=== PATIENT | female | born 1950 | race Caucasian/White ===

== ENCOUNTER 2018-03-29 07:52 | Day surgery (SDC) | payer MEDICARE, OTHER, SELFPAY ==
[2018-03-02 08:46] VITALS: BMI 29.2
[2018-03-29] VITALS (8 sets, daily range): BP systolic 99–162; BP diastolic 46–74; PULSE 51–68; RESP 14–16; TEMP 36.2–36.6; O2SAT 91–95; BMI 28.0
--- NOTE | 2018-03-29 09:30 | LES_PTH ---
PATIENT: ARLEN RAMIREZ LOC: [facility] – [place] U#:[id number] AGE/SX: 67/F ROOM: RE03/29/[address]: Dr. Ian Artis MD : 1950 BED: DIS: 03/29/2018 SPEC #: [id number] RECD: 03/29/18 13:11 STATUS: [facility] #: [id number] JULIET: 03/29/18 09:[address]: Ian Artis DEPT: SURGICAL PATHOLOGY RECD BY: Talha Tellez ENTERED: 03/29/18 13:23 SP TYPE: Lesion OTHR DR: Dr. Home Bonilla MD Tissues: Skin of scalp, NOS Procedures: Surgery Specimen Level IV HEADER OPERATION: Excision basal cell carcinoma, left frontal scalp PRE-OP DIAGNOSIS: 1 cm basal cell carcinoma, nodular and pigmented type, left frontal scalp TISSUE SUBMITTED: Left frontal scalp basal cell carcinoma, suture at 12 o'clock MICROSCOPIC DIAGNOSIS Left frontal scalp basal cell carcinoma, excisional biopsy: Negative for carcinoma. Dermal fibrosis consistent with scar. SJ:[email or web address] 03/30/18 MICROSCOPIC DESCRIPTION Slides are reviewed. GROSS DESCRIPTION Received in fixative is one container labeled with the patient's name and designated left frontal scalp. The specimen consists of a discoid fragment of light dumont excised skin measuring 1.6 x 1.2 cm and a depth of excision measuring 0.5 cm. A suture is present at one edge. This edge and corresponding half is inked in yellow ink. The opposite half is inked in black ink. The specimen is serially sectioned and totally submitted in one cassette. / AM:anushka 03/29/18 TC:5 CPT: 35980
[2018-03-29] MEDS: Mupirocin Ointment 22gm Tube 1 APPLIC (11:43)
--- NOTE | 2018-03-29 11:57 | PCM.IMDPSTOP ---
Immediate Post-Op Note Date of Procedure: 03/29/18 Primary Surgeon/Physician: Ian Artis MD veneer glue spreader: Kamini Molina. Pre-Operative Diagnosis: 1. 1 cm basal cell carcinoma, nodular and pigmented type, left frontal scalp. 2. Family history of skin cancer. 3. Smoker. Post-Operative Diagnosis: Same. Surgery/Procedure Performed:: Excision 1 cm basal cell carcinoma, nodular and pigmented type, left frontal scalp with FTSG reconstruction from left neck (3.24 cm2). Description of Surgical Findings:: 67 year old woman presents with a lesion on her left frontal scalp that had increased in size over the last several months. It had become more raised in configuration and had developed irregular borders. It was recently biopsied on 02/02/18 and it showed a basal cell carcinoma, nodular and pigmented type. She denies any localized alopecia. Today the patient underwent excision 1 cm basal cell carcinoma, nodular and pigmented type, left frontal scalp with FTSG reconstruction from left neck (3.24 cm2). Size of skin graft left frontal scalp - 1.8 x 1.8 cm. Estimated Blood Loss: 5 ml. Specimen's removed: Basal cell carcinoma left frontal scalp to Pathology. Drains: None. Type of Anesthesia:: Local MAC - xylocaine with epinephrine. - Admit VTE Documentation VTE Present on Admission: No VTE Mechan Device Prophylaxis: SCD's VTE Pharm Prophylaxis ordered?: No
--- NOTE | 2018-03-29 12:00 | OP.PN_ITS ---
Immediate Post-Op Note Date of Procedure: 03/29/18 Primary Surgeon/Physician: Ian Artis MD therapist rrt: Kamini Molina. Pre-Operative Diagnosis: 1. 1 cm basal cell carcinoma, nodular and pigmented type, left frontal scalp. 2. Family history of skin cancer. 3. Smoker. Post-Operative Diagnosis: Same. Surgery/Procedure Performed:: Excision 1 cm basal cell carcinoma, nodular and pigmented type, left frontal scalp with FTSG reconstruction from left neck (3.24 cm2). Description of Surgical Findings:: 67 year old woman presents with a lesion on her left frontal scalp that had increased in size over the last several months. It had become more raised in configuration and had developed irregular borders. It was recently biopsied on 02/02/18 and it showed a basal cell carcinoma, nodular and pigmented type. She denies any localized alopecia. Today the patient underwent excision 1 cm basal cell carcinoma, nodular and pigmented type, left frontal scalp with FTSG reconstruction from left neck (3.24 cm2). Size of skin graft left frontal scalp - 1.8 x 1.8 cm. Estimated Blood Loss: 5 ml. Specimen's removed: Basal cell carcinoma left frontal scalp to Pathology. Drains: None. Type of Anesthesia:: Local MAC - xylocaine with epinephrine. - Admit VTE Documentation VTE Present on Admission: No VTE Mechan Device Prophylaxis: SCD's VTE Pharm Prophylaxis ordered?: No
--- NOTE | 2018-03-29 12:08 | DCINST_ITS ---
You will use the following diet at home:: No restrictions Discharge Activity: May not drive while taking narcotic pain medications., May Shower - from the neck down in two days. do not get hair wet until the scalp dressing is removed in the office., - - keep head elevated. no heavy lifting. May shower in (days): 2 - from the neck down. May resume sexual activity in: No Restrictions Weight Bearing Status: Weight bearing as tolerated Lifting Restrictions: 20 lbs. Keep extremity elevated above heart level: - - elevate h ead. Call your doctor if your incision/area has: Continuous Slow Oozing, Sudden Increased Bleeding, Increased Pain/ Swelling, Increased Redness, Foul Smelling Discharge, Swelling at the incision site Call your doctor if you observe: Fever of 101 or Higher, Coldness, Increased Pain, Shortness of breath, Chest pain, Calf discomfort, Uncontrolled pain Suture Line Care: - - after neck dressing is removed in two days, apply antibiotic ointment to suture line daily. Change Dressing in (Days):: 2 - neck dressing only. Remove Dressing in (days):: 6 - will remove scalp dressing in office. Cleanse incision/area with: - - may get scalp graft wet in the shower after the scalp dressing is removed in the office. may get neck incision wet in the shower in two days. in two days, shower from the neck down only. do not get hair wet in the shower. Allergies/Adverse Reactions: Allergies TAPE ADHESIVE Adverse Reaction (Intermediate, Uncoded 03/23/18 13:40) SKIN BREAKDOWN Medications to take at Discharge atenolol 100 mg tablet 100 mg PO DAILY 03/02/18 hydrochlorothiazide 25 mg tablet 25 mg PO DAILY 03/02/18 lisinopril 20 mg tablet 20 mg PO DAILY 03/02/18 lovastatin 20 mg tablet 20 mg PO QHS 03/02/18 Clindamycin HCl [Cleocin HCl] 300 mg PO TID #21 cap 03/29/18 Lactobacillus Acidophilus/Fos [Acidophilus Probiotic Tablet] 1 ea PO BID #20 tab 03/29/18 Oxycodone HCl/Acetaminophen [Percocet 5/325] 1 tab PO 4X/DAY PRN PRN 7 Days #30 tab 03/29/18 The following prescriptions were given: Oxycodone HCl/Acetaminophen [Percocet 5/325] 1 tab PO 4X/DAY PRN PRN 7 Days #30 tab PRN Reason: Pain Lactobacillus Acidophilus/Fos [Acidophilus Probiotic Tablet] 1 ea PO BID #20 tab Clindamycin HCl [Cleocin HCl] 300 mg PO TID #21 cap Primary Care Physician: Home Bonilla [Primary Care Provider] - Test Results: Test results from this visit will be discussed in further detail at your follow- up appointment, if applicable. Please Follow Up With: Ian Artis MD When: wednesday04/04/18. call [phone] for appt. Proposed Discharge Date: 03/29/18
--- NOTE | 2018-03-29 18:08 | PCM.OPRPT ---
Report of Operation Date of Procedure: 03/29/18 Pre-Operative Diagnosis: 1. 1 cm basal cell carcinoma, nodular and pigmented type, left frontal scalp. 2. Family history of skin cancer. 3. Smoker. Post-Operative Diagnosis: Same. Surgery/Procedure Performed:: Excision 1 cm basal cell carcinoma, nodular and pigmented type, left frontal scalp with FTSG reconstruction from left neck (3.24 cm2). Description of Surgical Findings:: 67 year old woman presents with a lesion on her left frontal scalp that had increased in size over the last several months. It had become more raised in configuration and had developed irregular borders. It was recently biopsied on 02/02/18 and it showed a basal cell carcinoma, nodular and pigmented type. She denies any localized alopecia. Patient was informed of the risks and complications of the procedure including alternatives to surgery. These were discussed with the patient personally. Patient voices understanding and wishes to proceed. Some of the risks and complications were included in a form from the [employer]. Encouraged patient to stop smoking as it may have deleterious effects on wound healing. Size of skin graft left frontal scalp - 1.8 x 1.8 cm. investment consultant: Kamini Molina. Type of Anesthesia:: Local MAC - xylocaine with epinephrine. Specimen's removed: Basal cell carcinoma left frontal scalp to Pathology. Drains: None. Estimated Blood Loss (mL): 5 ml. Description of Procedure: Patient was taken to OR in supine position and was given IV sedation. The left frontal scalp and left neck areas were prepped and draped in the usual fashion. SCD's were placed for DVT prophylaxis. Perioperative antibiotics were given intravenously. The lesion left frontal scalp and left neck donor area were infiltrated with xylocaine and epinephrine. After waiting 5 minutes for the anesthetic to take effect, I made an elliptical excision on the left neck down into the subcutaneous tissue. The subcutaneous tissue was removed from the undersurface of the dermis thus fashioning a full thickness skin graft. The skin graft was placed in saline. I elevated neck skin flaps to aid in wound closure. Hemostasis was obtained with electrocautery. The left neck donor incision was closed in multiple layers using 5-0 Monocryl interrupted sutures for the deep dermis and subcutaneous tissue. The skin was approximated with 5-0 Prolene simple interrupted sutures. Antibiotic ointment was applied followed by an Op-Site dressing. I then excised the basal cell carcinoma left frontal scalp with a 4 mm margin in all directions down into the subcutaneous tissue. Hemostasis was obtained with electrocautery. A suture was placed at the 12 oclock position for pathology orientation. The lesion was then sent to Pathology for analysis to rule out carcinoma at the margins. This is a 1.8 cm excision. The size of the defect for the skin graft is 1.8 x 1.8 cm or 3.24 cm2. The full thickness skin graft was then placed on the scalp defect and secured to the skin edges with 4-0 Chromic interrupted sutures. 4-0 Chromic sutures were also used for central quilting stabilization. Antibiotic ointment was applied to the skin graft followed by xeroform gauze and a cotton ball soaked in saline and secured to the skin edge with 4-0 Nylon tie over stent suture dressing. Patient tolerated the procedure well and was sent to PACU in satisfactory condition. Patient will be sent home on antibiotics and pain medication. Patient will keep her head elevated during the initial postop period. Patient will followup in a week for a wound check with takedown of the skin graft dressing and for discussion of the pathology report and for removal of the sutures. Grafts/Implants Used: None. - Complications None. - Admit VTE Documentation VTE Present on Admission: No VTE Mechan Device Prophylaxis: SCD's VTE Pharm Prophylaxis ordered?: No Code Visit Surgery Charges CPT - 22866 ICD-10 - C44.41, Z80.8, F17.200 69961 C44.41, Z80.8, F17.200
== END 2018-03-29 13:37 | disposition home or self-care (01) ==
LOC: SDC 07:56 → AC 07:57
PROVIDERS: Family Provider Family Medicine; PCP Family Medicine; Referring Provider Surgery; Visit Provider Surgery
PROC: (CPT 11421; principal; 2018-03-29 09:15)
DX: L90.5 Scar conditions and fibrosis of skin (principal); C44.41 Basal cell carcinoma of skin of scalp and neck; D49.2 Neoplasm of unspecified behavior of bone, soft tissue, and skin; F17.200 Nicotine dependence, unspecified, uncomplicated; E78.00 Pure hypercholesterolemia, unspecified; I10 Essential (primary) hypertension; Z80.8 Family history of malignant neoplasm of other organs or systems; Z79.899 Other long term (current) drug therapy
CPT/HCPCS: 00300; 11421; 15220; 88305; J7120; J2405

== ENCOUNTER → 2022-01-13 | Outpatient (CLI) | payer MEDICARE, OTHER, SELFPAY ==
--- NOTE | 2022-01-13 10:40 | RAD_ITS ---
EXAM: XR LEFT HAND COMPLETE, 3 OR MORE VIEWS CLINICAL INDICATION: PAIN TECHNIQUE: Frontal, lateral and oblique views of the left hand. This report was created using [employer] report generation technology. COMPARISON: None. FINDINGS: BONES/JOINTS: Narrowing and bony spurring of the first CMC joint. No acute fracture or subluxation. SOFT TISSUES: Mild soft tissue swelling of the second and third fingers. No radiopaque foreign body. RAD/Hand Min 3 Views IMPRESSION: No acute bone or joint abnormality. DJD. Soft tissue swelling. Electronically Signed: Julio Mcclure MD at 11:04 EDT ,
--- NOTE | 2022-01-13 10:41 | RAD_ITS ---
EXAM: XR RIGHT HAND COMPLETE, 3 OR MORE VIEWS CLINICAL INDICATION: PAIN TECHNIQUE: Frontal, lateral and oblique views of the right hand. This report was created using [employer] report generation technology. COMPARISON: None. FINDINGS: BONES/JOINTS: Deformity of the distal portion of the second finger related to prior trauma. No acute fracture or subluxation. Narrowing and bony spurring of the first CMC joint. There is also narrowing of the third MCP joint. SOFT TISSUES: Mild soft tissue prominence of the second finger. No soft tissue gas. No radiopaque foreign body. RAD/Hand Min 3 Views IMPRESSION: No acute bone or joint abnormality. DJD. Electronically Signed: Julio Mcclure MD at 11:05 EDT ,
[2022-01-13 12:07] LABS: Absolute Lymphocyte Count 1.62 X10^3/uL (0.83-4.51); Absolute Neutrophil Count 8.9 X10^3/uL (2.0-7.7); Basophil# 0.04 X10^3/uL; Basophil% 0.4 % (0-1); Eosinophil# 0.18 X10^3/uL; Eosinophils% 1.6 % (0-5); Hematocrit 47.6 % (37-47); Hemoglobin 16.1 g/dL (12.0-15.0); Lymphocyte # 1.62 X10^3/ul (0.83-4.51); Lymphocyte % 14.5 % (19-41); Mean Corp Hgb Conc 33.8 g/dL (32-36); Mean Corpuscular Hgb 32.5 pg (27.0-32.0); Monocyte# 0.38 X10^3/uL; Monocyte% 3.4 % (0-10); NRBC Flagged by Analyzer 0 % (0-5); Neutrophil # 8.85 X10^3/uL (2.7-7.7); Platelet Count 206 K/mm3 (150-450); RBC Distribution Width CV 14.1 % (11.6-14.6); RBC Distribution Width SD 49.8 fl (35.1-43.9); Red Blood Count 4.96 M/mm3 (4.2-5.4); White Blood Count 11.2 K/mm3 (4.4-11.0)
[2022-01-13 12:51] LABS: ALB/GLOB Ratio 0.9 RATIO (0.9-2.4); AST(SGOT) 15 U/L (15-37); Alanine Aminotransfer ALT/SGPT 22 U/L (13-56); Albumin, Serum 3.3 g/dL (3.2-5.0); Alkaline Phosphatase 46 U/L (45-117); Anion Gap 6 (5-15); BUN 23 mg/dL (7-18); Calcium,Total 9.5 mg/dL (8.5-10.1); Chloride 99 mmol/L (98-107); Creatinine, Serum 1.15 mg/dL (0.55-1.02); EST Glomerular Filtration Rate 49 mL/min (>60); Est Glom Filt Rate - Afr Amer 60 mL/min (>60); Globulin 3.7 g/dL (2.2-4.2); Glucose 130 mg/dL (74-106); Potassium 3.7 mmol/L (3.5-5.1); Rheumatoid Factor < 10.0 IU/mL (<15); Sodium Level 135 mmol/L (136-145)
[2022-01-13 13:28] LABS: Hepatitis B Surface Antibody Non-Reactive; Hepatitis B Surface Antigen Non-Reactive (Nonreactive); Hepatitis C Antibody Non-Reactive (Nonreactive)
[2022-01-16 15:11] LABS: CCP IgG Antibodies 3 units (0-19)
== END | disposition home or self-care (01) ==
LOC: MTLAB 10:38
PROVIDERS: PCP Family Medicine; Referring Provider Internal Medicine Rheumatology; Visit Provider Internal Medicine Rheumatology
DX: M06.4 Inflammatory polyarthropathy (principal); J44.9 Chronic obstructive pulmonary disease, unspecified; I10 Essential (primary) hypertension; E78.5 Hyperlipidemia, unspecified; H40.9 Unspecified glaucoma; K57.90 Diverticulosis of intestine, part unspecified, without perforation or abscess without bleeding; M79.641 Pain in right hand; M79.642 Pain in left hand; Z98.890 Other specified postprocedural states; Z85.820 Personal history of malignant melanoma of skin
CPT/HCPCS: 36415; 73130; 80053; 85025; 86200; 86431; 86706; 86803; 87340

== ENCOUNTER 2022-10-23 06:00 | Day surgery (SDC) | payer MEDICARE, OTHER, SELFPAY ==
[2022-10-23] VITALS (7 sets, daily range): BP systolic 132–162; BP diastolic 56–82; PULSE 54–68; RESP 16–18; TEMP 36.1–36.4; O2SAT 93–96; BMI 26.4
[2022-10-23] MEDS: Lactated Ringers 1,000 ML 15 ML IV (06:35)
--- NOTE | 2022-10-23 07:30 | LES_PTH ---
PATIENT: ARLEN RAMIREZ [place] [facility] [place][id number] AGE/SX: 71/F ROOM: RE10/23/[address]: Dr. Ian Artis MD : 1950 BED: DIS: 10/23/2022 SPEC #: [id number] RECD: 10/23/22 11:26 STATUS: SILVER [facility]RIST #: [id number] JULIET: 10/23/22 07:[address]: Ian Artis DEPT: SURGICAL PATHOLOGY RECD BY: Puja Gibson ENTERED: 10/23/22 11:49 SP TYPE: Lesion OTHR DR: Dr. Home Bonilla MD Tissues: Skin of face, NOS Procedures: Surgery Specimen Level IV HEADER OPERATION: Excision painful soft tissue mass right medial cheek PRE-OP DIAGNOSIS: Neoplasm of skin of scalp, dysesthesia, skin cancer TISSUE SUBMITTED: Infected soft tissue mass right medial cheek, suture at 12 o'clock MICROSCOPIC DIAGNOSIS Skin of right medial cheek, biopsy: Acute and chronic inflammation and granulation. Portion of ruptured epidermal inclusion cyst, inflamed. Solar elastosis. AM:anushka 10/26/2022 MICROSCOPIC DESCRIPTION Slides are reviewed. GROSS DESCRIPTION Received in fixative is one container labeled with the patient's name and designated Infected soft tissue mass right medial cheek. The specimen consists of a piece of skin with underlying tissue measuring 1.5 x 1.4 cm and up to 0.6 cm in thickness. An ovoid partial incision is also noted at the surface. The specimen is inked as follows: 12 to 3 o'clock - black, 3 to 6 o'clock - blue, 6 to 9 o'clock - green and 9 to 12 o'clock - yellow. The specimen is serially sectioned and submitted entirely in one cassette. / SJ:anushka 10/23/2022 TC:5 CPT: 75325
[2022-10-23] MEDS: Clindamycin 900 MG/50 ML BAG 75 MG IV (07:32)
[2022-10-23] MEDS: Lidocaine 1% /Epi 1:100 (20ml) 20 ML Vial (08:01)
[2022-10-23] MEDS: BACITRACIN/POLYMYXIN B 15 GM Tube 1 APPLIC (08:50)
--- NOTE | 2022-10-23 09:58 | OP.PCM_ITS ---
Problems Associated Problem List Diagnoses (1) Cheek mass: (2) Dysesthesia: (3) Local infection of the skin and subcutaneous tissue, unspecified: (4) Personal history of skin cancer: (5) Family history of skin cancer: (6) Smoker: Report of Operation Date of Procedure: 10/23/22 Pre-Operative Diagnosis: 1. 1.5 cm painful soft tissue mass right medial cheek near melolabial fold. 2. Personal history of skin cancer. 3. Family history of skin cancer. 4. Smoker. Post-Operative Diagnosis: 1. 1.5 cm painful infected soft tissue masses cluster right medial cheek near melolabial fold. 2. Personal history of skin cancer. 3. Family history of skin cancer. 4. Smoker. Surgery/Procedure Performed:: Excision 1.5 cm painful infected soft tissue masses cluster right medial cheek near melolabial fold with rhomboid t ransposition skin flap reconstruction (5.78 cm2). Description of Surgical Findings:: 71 year old woman presents with a painful soft tissue mass right medial cheek by melolabial fold that has been increasing in size over the last several months. She denies trauma. She denies fever. She noticed it getting much bigger recently with increased redness suggestive of an infection. She states there is discomfort when the mass is bumped. She has had a basal cell carcinoma removed from her scalp in the past. Patient was informed of the risks and complications of the procedure including alternatives to surgery. These were discussed with the patient personally. Patient voices understanding and wishes to proceed. Some of the risks and complications were included in a form from the [employer]. Potential risks and complications included but not inclusive of bleeding, infection, seroma, hematoma, bruising, swelling, loss of sensation to skin, partial or complete loss of skin flap, wound breakdown, need for wound care, poor scarring, poor aesthetic outcome, intra operative cardiac or neurologic events, DVT, PE, and reaction to anesthesia. Encouraged patient to stop smoking as it may have deleterious effects on wound healing. Infected soft tissue masses cluster were seen in the wound with thickened purulent drainage. Surgeon: Ian Artis MD magneto electrician: None Type of Anesthesia: Local MAC (xylocaine with epinephrine and IV sedation.) Anesthesiologist: Gabo Tapia MD and Leia [place] CRNA Specimen's removed: Painful infected soft tissue masses cluster right medial cheek near melolabial fold to Pathology and Microbiology. Drains: None. Estimated Blood Loss (mL): 10. Description of Procedure: Patient was taken to OR in supine position and was given IV sedation. The right side of the face was prepped and draped in the usual fashion. SCD's were placed for DVT prophylaxis. Perioperative antibiotics were given intravenously. The soft tissue mass was infiltrated with xylocaine and epinephrine. After waiting 5 minutes for the anesthetic to take effect, I made an initial oblique ellip tical incision over the soft tissue mass right medial cheek near melolabial fold. Dissection was carried into the subcutaneous tissue. Some fat necrosis seen. Also thickened purulent drainage was seen as well as multiple masses cluster were seen. The infected soft tissue masses cluster were extended laterally. There was adherence of this infected soft tissue masses cluster to the overlying skin. So the incision was extended in a rhomboid fashion to include all the areas where the infected masses cluster were adherent to the overlying skin. Healthy subcutaneous tissue was seen at the base of the wound after excision. Hemostasis obtained with electrocautery. The wound was irrigated with saline. A suture was marked at 12 oclock position for pathology orientation. The masses cluster were sent to Pathology for analysis to rule out carcinoma. I also excised some of the soft tissue in the area of the purulent drainage and sent it to Microbiology for culture. A positive culture will necessitate antibiotic therapy. The resultant wound looked clean with no further evidence of infection. I designed a rhomboid flap inferomedial and adjacent to the wound defect. Incisions were made and the flap was elevated on a subcutaneous pedicle at the level of the underlying facial musculature. The rhomboid flap was easily transposed into the wound defect with minimal tension and minimal distortion. Hemostasis was obtained with electrocautery. The flap was secured into the wound defect with 5-0 Monocryl interrupted sutures for the deep dermis and subcutaneous tissue. The skin was approximated with 6-0 Prolene simple interrupted sutures. Steri-strips were applied followed by antibiotic ointment. The flap showed no vascular compromise. There was no clinical evidence of hematoma. The size of the wound and the size of the flap needed to close the wound defect was 5.78 cm2. Patient tolerated the procedure well and was sent to PACU in satisfactory condition. Patient will be sent home on antibiotics and pain medication. She will keep her head elevated during the initial postoperative period. Patient will followup in a week for a wound check and for discussion of the pathology report and for discussion of the Microbiology report and for removal of the sutures. A positive culture will necessitate antibiotic therapy. Grafts/Implants Used: None. Procedure Start Time: 08:01 Procedure Stop Time: 09:02 Complications None. Admit VTE Documentation VTE Present on Admission: No VTE Mechan Device Prophylaxis: SCD's VTE Pharm Prophylaxis ordered?: No Addendum Addendum: Surgery Charges CPT - 12700 ICD-10 - R22.0, R20.8, L08.9, Z85.828, Z80.8, F17.200
--- NOTE | 2022-10-23 09:58 | DCINST_ITS ---
Discharge Instructions Diet Discharge Diet: No restrictions and - (encourage nutritional supplementation with protein to help the healing process.) Activity Discharge Activity: May Drive (when not taking narcotics for pain relief.), May Shower (in 2 days) and - (keep head elevated. no heavy lifting.) May shower in (days): 2 May resume sexual activity in: 10-14 days Ice area for (Minutes): 5 (as needed for facial swelling.) Weight Bearing Status: Weight bearing as tolerated Lifting Restrictions: 10 lbs. Keep extremity elevated above heart level: - (elevate head.) Dressing / Incision Call your doctor if your incision/area has: Continuous Slow Oozing, Sudden Increased Bleeding, Increased Pain/ Swelling, Foul Smelling Discharge and Swelling at the incision site Call your doctor if you observe: Fever of 101 or Higher, Coldness, Increased Pain, Shortness of breath, Chest pain, Calf discomfort and Uncontrolled pain Suture Line Care: - (apply antibiotic ointment to suture line daily.) Change Dressing in: leave in place till F/U (if a steri-strip become loose, patient may remove that strip) Cleanse incision/area with: - (may get incision wet in the shower in two days.) Follow Up Care Please Follow Up With: Ian Artis MD When: one week () 10/29/22. call [phone] for appt. Test Results: Test results from this visit will be discussed in further detail at your follow- up appointment, if applicable. Discharge Plan Admission Primary Reason for Your Visit: excision infected cyst rigth medial cheek Attending Provider: Ian Artis Primary Care Provider: Home Bonilla Discharge Orders/Prescriptions Prescriptions: New clindamycin HCl [Cleocin HCl] 300 mg capsule 300 mg PO TID Qty: 21 0RF L.acidoph,saliva-B.bif-S.therm [Acidophilus Probiotic Blend] 175 mg capsule 1 cap PO DAILY Qty: 30 0RF oxycodone-acetaminophen [Percocet] 5-325 mg tablet 1 tab PO Q6H PRN (Reason: pain (scale score 7-10)) 5 Days Qty: 20 0RF Rx Instructions: 20 tabs (twenty) Continued atenolol 100 mg tablet 100 mg PO DAILY lisinopril 20 mg tablet 20 mg PO DAILY hydrochlorothiazide 25 mg tablet 25 mg PO DAILY potassium chloride 10 mEq capsule, extended release 20 meq PO DAILY hydroxychloroquine 200 mg tablet 400 mg PO DAILY prednisone 1 mg tablet 2 mg PO DAILY Patient Comments: TAKE 2 TABLETS BY MOUTH IN THE MORNING Referrals / Follow Up: Home Bonilla MD [Primary Care Provider] - Disposition Disposition (needs filled in before D/C Order can be placed): Home, Self Care
== END 2022-10-23 10:33 | disposition home or self-care (01) ==
LOC: SDC 06:02 → AC 06:04
PROVIDERS: PCP Family Medicine; Referring Provider Surgery; Visit Provider Surgery
PROC: (CPT 14040; principal; 2022-10-23 07:20)
DX: L72.0 Epidermal cyst (principal); M06.9 Rheumatoid arthritis, unspecified; R20.8 Other disturbances of skin sensation; I10 Essential (primary) hypertension; F17.200 Nicotine dependence, unspecified, uncomplicated; Z85.828 Personal history of other malignant neoplasm of skin; Z80.8 Family history of malignant neoplasm of other organs or systems; Z79.899 Other long term (current) drug therapy
CPT/HCPCS: 14040; 00300; 87070; 87075; 87077; 87102; 87186; 87205; 87206; 88305; J7120; J2405

== ENCOUNTER → 2024-11-24 | Outpatient (CLI) | payer MEDICARE, OTHER, SELFPAY | END | disposition home or self-care (01) | LOC: PSN 08:52 | PROVIDERS: PCP Family Medicine; Referring Provider Internal Medicine Cardiovascular Disease; Visit Provider Internal Medicine Cardiovascular Disease | DX: I49.3 Ventricular premature depolarization (principal) | CPT/HCPCS: 93225; 93226 ==